=== PATIENT | female | born 2000 | race African-American/Black ===

== ENCOUNTER 2021-12-19 12:48 | Emergency (ER) | payer MEDICAID, OTHER ==
[~2021-12-19] VITALS: Ht 154.9 cm; Wt 90.7 kg
[2021-12-19 13:42] VITALS: BP 114/87
[2021-12-19] MEDS ORDERED: cefTRIAXone SOD 1,000 MG VL IM ONE (14:15)
[2021-12-19] MEDS ORDERED: methylPREDNISolone SOD SUCC 125 MG/2 ML VL IM ONE (14:15)
[2021-12-19] MEDS ORDERED: LIDO2SOL23 MT (14:22)
[2021-12-19] MEDS ORDERED: METR500T PO (14:22)
[2021-12-19] MEDS ORDERED: PENI500T2 PO (14:22)
== END 2021-12-19 14:52 | disposition home or self-care (01) ==
LOC: ER 12:48
DX: J03.00 Acute streptococcal tonsillitis, unspecified (principal); N76.0 Acute vaginitis; J45.909 Unspecified asthma, uncomplicated; F12.10 Cannabis abuse, uncomplicated; B96.89 Other specified bacterial agents as the cause of diseases classified elsewhere; Z91.040 Latex allergy status
CPT/HCPCS: 96372; 99284; J0696; J2930

== ENCOUNTER 2022-01-17 11:45 | Emergency (ER) | payer MEDICAID ==
[~2022-01-17] VITALS: Ht 154.9 cm; Wt 95.2 kg
[~2022-01-17 11:45] MED LIST: LIDO2SOL23 MT; METR500T PO; PENI500T2 PO
[2022-01-17 11:57] VITALS: BP 137/96
[2022-01-17] MEDS ORDERED: LIDO2SOL23 MT (12:44)
[2022-01-17] MEDS ORDERED: CEPH250S41 PO (12:44)
== END 2022-01-17 12:51 | disposition home or self-care (01) ==
LOC: ER 11:53
DX: J03.90 Acute tonsillitis, unspecified (principal); Z32.02 Encounter for pregnancy test, result negative; J45.909 Unspecified asthma, uncomplicated; Z79.899 Other long term (current) drug therapy; Z91.040 Latex allergy status